=== PATIENT | female | born 2000 | race Caucasian/White ===

== ENCOUNTER → 2022-09-08 | Outpatient (REF) | payer BC, OTHER ==
[2022-09-08 19:15] LABS: GC DNA AMPLIFICATION NEGATIVE (NEGATIVE)
== END ==
LOC: M LAB REF 16:59
PROVIDERS: ATTEND Registered Nurse
DX: Z11.3 Encounter for screening for infections with a predominantly sexual mode of transmission (principal)

== ENCOUNTER 2024-06-12 01:01 | Emergency (ER) | payer BC, OTHER ==
[~2024-06-12] VITALS: Ht 154.9 cm; Wt 71.5 kg
[2024-06-12] MEDS ORDERED: VALA500T5 PO (01:11)
[2024-06-12 01:50] LABS: BASO # 0.1 10^3/uL (0.0-0.2); BASO % 0.5 % (0.0-1.0); EOS # 0.1 10^3/uL (0.0-0.5); EOS % 0.4 % (0.0-3.0); HEMATOCRIT 45.3 % (36.0-47.0); HEMOGLOBIN 15.2 g/dl (12.0-15.5); LYMPH # 2.6 10^3/uL (1.5-5.0); LYMPH % 22.2 % (24.0-44.0); MEAN CORPUSCULAR HEMOGLOBIN 28.3 pg (27.0-33.0); MEAN CORPUSCULAR HGB CONC 33.6 g/dl (32.0-36.5); MEAN CORPUSCULAR VOLUME 84.2 fl (80.0-96.0); MONO # 0.6 10^3/uL (0.0-0.8); MONO % 5.1 % (2.0-8.0); NEUTROPHILS # 8.4 10^3/uL (1.5-8.5); NEUTROPHILS % 71.5 % (36.0-66.0); PLATELET COUNT, AUTOMATED 348 10^3/uL (150-450); RED BLOOD COUNT 5.38 10^6/uL (4.00-5.40); WHITE BLOOD COUNT 11.7 10^3/uL (4.0-10.0)
[2024-06-12 02:17] LABS: LIPASE 31 U/L (12-53)
[2024-06-12 02:19] LABS: ALBUMIN 4.5 G/DL (3.2-5.2); ALKALINE PHOSPHATASE 77 U/L (35-104); ALT/SGPT 21 U/L (7.0-40); AST/SGOT 29 U/L (<34); BILIRUBIN,DIRECT 0.4 MG/DL (<0.4); BILIRUBIN,TOTAL 1.4 MG/DL (0.3-1.2); TOTAL PROTEIN 8.3 G/DL (5.7-8.2)
[2024-06-12] MEDS: ONDANSETRON 4MG 2ML VIAL IV ONE (02:57)
[2024-06-12 03:20] LABS: HCG, SERUM QUALITATIVE NEGATIVE (NEGATIVE)
[2024-06-12] MEDS ORDERED: ONDA-282 PO (03:33)
[2024-06-12 03:46] VITALS: BP 107/68; TEMP 98; O2SAT 97
== END 2024-06-12 03:47 | disposition home or self-care (01) ==
LOC: M ED 01:01
DX: R11.10 Vomiting, unspecified (principal); J45.909 Unspecified asthma, uncomplicated; F17.200 Nicotine dependence, unspecified, uncomplicated; F19.10 Other psychoactive substance abuse, uncomplicated; F10.10 Alcohol abuse, uncomplicated; Z79.83 Long term (current) use of bisphosphonates; Z79.899 Other long term (current) drug therapy
CPT/HCPCS: 80047; 80076; 83690; 84703; 85025; 96374; 99284; J2405

== ENCOUNTER 2024-10-18 01:22 | Emergency (ER) | payer BC ==
[~2024-10-18] VITALS: Ht 154.9 cm; Wt 68.0 kg
[~2024-10-18 01:22] MED LIST: ONDA-282 PO; VALA500T5 PO
[2024-10-18] MEDS: FAMOTIDINE IV BAG 20 MG in IV 1 EA IV ONE (02:50)
[2024-10-18] MEDS: diphenhydrAMINE 50MG/ML VIAL IV ONE (02:50)
[2024-10-18] MEDS: methylPREDNISolone 125MG 2ML VIAL IV ONE (02:50)
[2024-10-18] MEDS ORDERED: PRED20TA PO (03:03)
[2024-10-18 04:18] VITALS: BP 100/61; TEMP 98.6; O2SAT 100
== END 2024-10-18 04:20 | disposition home or self-care (01) ==
LOC: M ED 01:22
DX: L50.0 Allergic urticaria (principal); J45.909 Unspecified asthma, uncomplicated; Z91.010 Allergy to peanuts; Z79.52 Long term (current) use of systemic steroids; Z79.83 Long term (current) use of bisphosphonates; Z79.899 Other long term (current) drug therapy
CPT/HCPCS: 96365; 96366; 96375; 99284; J1200; J2919; S0028